=== PATIENT | female | born 2000 | race Caucasian/White ===

== ENCOUNTER → 2024-09-12 17:14 | Outpatient (REF) | payer BC, SELFPAY ==
[2024-09-12 17:37] LABS: % Basophils 0.3 % (0-2); % Eosinophils 0.6 % (0-6); % Immature Granulocytes 0.2 % (0-0.5); % Lymphocytes 22.7 % (20.5-51.1); % Monocytes 5.5 % (1.7-9.3); % Neutrophils 70.7 % (42.2-75.2); ALT (SGPT) 19 U/L (0-35); AST (SGOT) 28 U/L (14-36); Absolute Eosinophils 0.1 10^3/uL (0-0.7); Absolute Lymphocytes 2.3 10^3/uL (1.2-3.4); Absolute Monocytes 0.6 10^3/uL (0.1-0.6); Absolute Neutrophils 7.2 10^3/uL (1.4-6.5); Albumin 5.4 g/dl (3.5-5.0); Alkaline Phosphatase 69 U/L (38-126); Blood Urea Nitrogen 16 mg/dl (7-17); Calcium 10.5 mg/dl (8.4-10.2); Carbon Dioxide 24 mmol/L (22-30); Chloride 99 mmol/L (98-107); Glucose 98 mg/dl (70-99); Hematocrit 42.9 % (37.0-47.0); Hemoglobin 13.7 g/dL (12.0-16.0); Iron 99 ug/dl (37-170); Mean Corp Hgb Conc. 31.9 g/dL (33.0-37.0); Mean Corpuscular Hgb 30.2 pg (27.0-31.0); Mean Corpuscular Volume 94.5 fL (81.0-99.0); Mean Platelet Volume 9.8 fL (7.4-10.4); Nucleated Red Blood Cells % 0 %; Platelet Count 303 10^3/uL (130-400); Potassium 4.5 mmol/L (3.5-5.1); Red Blood Cell Count 4.54 10^6/uL (4.20-5.40); Red Cell Dist. Width 13.5 % (11.5-14.5); Sodium 138 mmol/L (135-145); Total Bilirubin 0.6 mg/dl (0.2-1.3); Total Protein 8.9 g/dl (6.3-8.2); White Blood Cell Count 10.1 10^3/uL (4.8-10.8); eGFR > 60.00
[2024-09-12 17:46] LABS: Percent Saturation 20 % (20-50); Total Iron Binding Capacity 484 ug/dl (265-497)
[2024-09-12 17:54] LABS: Vitamin D, 25-OH*** 21.9 ng/mL (30-80)
[2024-09-12 18:07] LABS: TSH 1.56 uIU/ml (0.47-4.68)
[2024-09-12 18:11] LABS: Ferritin 12.4 ng/ml (6.24-137)
[2024-09-12 18:27] LABS: Vitamin B12 288 pg/ml (239-931)
== END ==
LOC: CLAB 17:14
PROVIDERS: ATTENDING PHYSICIAN Physician Assistant Medical
DX: R53.83 Other fatigue (principal)
CPT/HCPCS: 36415; 80053; 82306; 82607; 82728; 83540; 83550; 84443; 85025